=== PATIENT | male | born 1950 | race Caucasian/White ===

== ENCOUNTER → 2016-05-16 | Outpatient (CLI) | payer MEDICARE, OTHER ==
[~2016-05-16] MED LIST: ALDACTONE25 MG PO; APRESOLINE10 MG PO; ASPIRIN EC81 MG PO; ASPIRIN325 MG PO; CARAFATE1 GM PO; CO Q10100 MG PO; COREG 3.1253.125 MG PO; LASIX40 MG PO; LIPITOR20 MG PO; NITROSTAT 0.40.4 MG SL; NITROSTAT0.4 MG SL; NORVASC2.5 MG PO; NOVOLOG MI100 UNIT/2 SUB-Q; NOVOLOG MI100 UNIT/M SUB-Q; OXYGEN M-15 INH; POTASSIUM CHLO20 ME1 PO; PROTONIX40 MG PO; REFRESH PLUS1 EACH OPHTH; REVATIO 20 MG T20 MG PO; VITAMIN D-32000 UNI1 PO; VITAMIN D1000 UNIT PO; VITAMIN D2000 UNI1 PO; ZAROXOLYN5 MG PO; ZESTRIL2.5 MG PO
== END | disposition disaster alternative care site (69) ==
LOC: GOPP 12:00
PROC: 0W9G3ZZ Drainage of Peritoneal Cavity, Percutaneous Approach (ICD-10-PCS; principal; 2016-05-16)
DX: R18.8 Other ascites (principal); N18.3 Chronic kidney disease, stage 3 (moderate); K76.9 Liver disease, unspecified; I50.9 Heart failure, unspecified; Z79.899 Other long term (current) drug therapy
CPT/HCPCS: J2001; P9047

== ENCOUNTER → 2016-05-22 | Outpatient (CLI) | payer MEDICARE, OTHER ==
[2016-05-22 12:47] LABS: INR - (THERAPEUTIC) 1.1 (0.9-1.1); PROTIME 12.1 SECONDS (9.6-11.1)
== END | disposition disaster alternative care site (69) ==
LOC: GOPP 12:00
PROVIDERS: Internal Medicine
PROC: 0W9G3ZZ Drainage of Peritoneal Cavity, Percutaneous Approach (ICD-10-PCS; principal; 2016-05-22)
DX: R18.8 Other ascites (principal)
CPT/HCPCS: J2001; P9047